=== PATIENT | female | born 1995 | race Caucasian/White ===

== ENCOUNTER → 2019-08-10 13:40 | Outpatient (POV) | payer MEDICAID, SELFPAY | DX: Z00.00 Encounter for general adult medical examination without abnormal findings (principal) ==

== ENCOUNTER → 2019-08-31 13:41 | Outpatient (POV) | payer MEDICAID, SELFPAY | DX: Z00.00 Encounter for general adult medical examination without abnormal findings (principal) ==

== ENCOUNTER → 2021-07-12 14:02 | Outpatient (CLI) | payer MEDICAID, SELFPAY | PROVIDERS: PCP Pediatrics; Visit Provider Nurse Practitioner Family | DX: U07.1 COVID-19 (principal) | CPT/HCPCS: C9803; U0003; U0005 ==

== ENCOUNTER 2022-01-09 11:27 | Emergency (ER) | payer MEDICAID, SELFPAY ==
[2022-01-09 11:50] VITALS: BP 119/72; PULSE 71; RESP 16; TEMP 36.7; O2SAT 98; BMI 19.8
[2022-01-09 11:59] LABS: Strep Scrn Group A (Rapid) Negative (Negative)
--- NOTE | 2022-01-09 12:28 | HMH.EDUTC ---
[facility] [place] Disposition Clinical Impression: Sinusitis Qualifiers: Sinusitis location: unspecified location Chronicity: unspecified Qualified Code(s): J32.9 - Chronic sinusitis, unspecified Disposition: Home, Self-Care Condition on Discharge: Good Instructions: Sinusitis, DI for Sinusitis Additional Instructions: *Monitor Temp, Over the counter Motrin or Tylenol as directed/as needed Tylenol every 4 hours and Motrin every 6 hours (as long as your family doctor has told you that you can take it) for fever or pain. and straight to ER if unable to lower temp less than 101.0 after medication given *Warm salt water gargles may help to soothe the throat *Throat Lozenges *Warm fluids like tea with honey may help to soothe the throat *Sleep elevated *Humidifier/Vaporizer Your throat swab was sent for culture. Those results are typically sent to your primary care. Be sure to follow up in 2-3 days with your family doctor/primary care physician if no improvement so they can review those result and treat if necessary. If you don?t have a primary care doctor, I recommend you get one but in the mean time, you will have to return to a walk in clinic Follow up IMMEDIATELY for new or worsening symptoms or no Noticeable improvement over the next 48-72 hours. 911 for difficulty breathing or swallowing You were tested for today for COVID19 your test result should be back in the next 24-48 hours, you may Check your results on the [facility] My health portal Make sure to take your Vitamins Vit. C Vit D and Zinc if you can take them Prescriptions: methylPREDNISolone [Medrol 4mg tab] 4 mg PO DIRECTED #21 tab Transmission Status: Pending to [facility] # Azithromycin [Z-Talib 250mg Tab] 250 mg PO DIRECTED #6 tab Transmission Status: Pending to [facility] # Referrals: Jaspreet Hernandez JR, MD [Primary Care Provider] - As needed Forms: Work/School Release Medical Decision Making - Jadon Inquiry Pt receiving controlled substance: No Jadon was queried for this patient: No Vital Signs: 01/09/22 11:50 Temperature 98.1 F Temperature Source Oral Pulse Rate [Left Brachial] 71 Respiratory Rate 16 Blood Pressure [Left Arm] 119/72 Blood Pressure Mean [Left Arm] 87 Blood Pressure Source [Left Arm] Automatic Cuff Blood Pressure Position [Left Arm] Sitting 02 Sat by Pulse Oximetry 98 Oxygen Delivery Method Room Air - Lab Data Lab results reviewed: Yes: I reviewed the patient's lab results. Lab Results 01/09/22 11:35: Group A Strep Rapid Negative Orders (Tests/Meds): ORDERS Category Date Time Status Covid-19 Nasal PCR ([facility]) Routine Lab 01/09/22 11:35 Received Strep Screen Confirmation Stat Micro 01/09/22 11:35 Received Medical Decision Narrative: Patient states that she has taken azithromycin and Medrol in the past without complications or reactions [facility] [place] HPI - General Stated complaint: sore throat, weakness, congestion, runny nose, h/a Time Seen by Provider: 01/09/22 12:28 Mode of Arrival: Ambulatory Source of Information: Patient Limitations: No Limitations Description of Symptoms (Recalled from Triage Doc. by RN): PATIENT C/O SINUS PRESSURE, REQUESTING COVID TEST HEENT Symptoms (Recalled from RN notes): Yes Resp Symptoms (Recalled from RN notes): No Skin Symptoms (Recalled from RN notes): No MS Symptoms (Recalled from RN notes): No Functional Status (Recalled from RN notes): WNL - History of Present Illness Provider Complaint: Patient states that she has been having sinus pain and pressure for several days that has continued to get worse States that today her throat is hurting and the pressure behind her eyes States that she was worried she may have strep, sinus infection or COVID - Related Data Home Medications Medication Instructions Recorded Confirmed norgestimate-ethinyl estradiol 1 tab PO DAILY 05/20/18 05/20/18 0.18 mg/0.215mg/0.25mg-35 mcg(28)tablet sertra
[2022-01-09 12:46] VITALS: BP 119/72; PULSE 71; RESP 16; TEMP 36.7; O2SAT 98
== END 2022-01-09 12:47 | disposition home or self-care (01) ==
PROVIDERS: Emergency Provider Nurse Practitioner; PCP Pediatrics
DX: J32.9 Chronic sinusitis, unspecified (principal)
CPT/HCPCS: 87430; 99212; C9803; G0463; U0003; U0005

== ENCOUNTER → 2022-01-16 10:35 | Outpatient (CLI) | payer MEDICAID, SELFPAY ==
[2022-01-16 11:38] LABS: Barbiturates Screen,Urine Negative ng/ml (<200); Benzodiazepines Screen,Urine Negative ng/ml (<200)
[2022-01-16 11:39] LABS: Amphetamine/Metha Screen,Urine Negative ng/ml (<1000); Cocaine Screen,Urine Negative ng/ml (<300)
[2022-01-16 11:40] LABS: Methadone Screen,Urine Negative ng/ml (<300)
[2022-01-16 11:41] LABS: Cannabinoid Screen,Urine Negative ng/ml (<50); Phencyclidine Screen,Urine Negative ng/ml (<25)
[2022-01-16 11:42] LABS: Opiate Screen,Urine Negative ng/ml (<300)
== END ==
PROVIDERS: PCP Pediatrics; Visit Provider Registered Nurse Emergency
DX: F90.9 Attention-deficit hyperactivity disorder, unspecified type (principal)
CPT/HCPCS: 80305

== ENCOUNTER 2022-03-06 10:52 | Emergency (ER) | payer MEDICAID, SELFPAY ==
[2022-03-06 11:40] VITALS: BP 124/68; PULSE 87; RESP 18; TEMP 37; O2SAT 98; BMI 21.4
--- NOTE | 2022-03-06 12:17 | EXP.UTC ---
Discharge Plan Disposition Patient Disposition: Home, Self-Care Condition: Good Prescriptions Prescriptions: New dicyclomine 10 mg capsule 10 mg PO TID PRN (Reason: cramping) Qty: 15 0RF promethazine 25 mg tablet 25 mg PO HS PRN (Reason: nausea and vomiting) Qty: 10 0RF No Action sertraline [Zoloft] 50 mg tablet 50 mg PO DAILY methylphenidate HCl [Concerta] 27 mg tablet extended release 24hr 27 mg PO DAILY Label Comments: TAKE 1 TABLET BY MOUTH EVERY DAY Referrals Referrals: Jaspreet Hernandez JR, MD [Primary Care Provider] - Enter time for follow up Activity Restrictions/Add. Instructions Additional Instructions/Restrictions: Take medications as prescribe Drink extra fluids with and between meals. If you have difficulty drinking, try very small amounts of water or suck on ice chips. ? Avoid fruit juices, as these do not replace minerals and can actually increase diarrhea. ? Children and adults can use sports drinks to replenish electrolytes. Younger children and infants should use products formulated for children, like oral rehydration solutions. ? Eat food in small amounts and let your stomach recover. ? Get lots of rest. You may feel tired or weak. ? No greasy or fried foods for the next 24-48 hours BRAT diet Bananas Rice Apples and [place] ? Make sure to drink plenty of liquids ? Return if needed ? Straight to ER if any life threatening symptoms ? You was given an outpatient order for diarrhea panel, please collect specimen and bring back to outpatient lab then call back to the [facility] or follow up with family doctor for results ? Follow up with family doctor in the next 48-72 hours if no improvement or any worsening of symptoms Clinical Impressions Clinical Impression: Nausea, vomiting and diarrhea Stand Alone Forms Stand Alone Forms: Work/School Release Discharge ED Provider: Christy Cullen [facility] [place] HPI General Stated complaint: vomiting,diarrhea,headache,chills Mode of Arrival: Ambulatory Source of Information: Patient Limitations: No Limitations Time Seen by Provider: 03/06/22 12:10 Description of Symptoms (Recalled from Triage Doc. by RN): PATIENT C/O VOMITING, STOMACH ACHE, WEAKNESS, DIARRHEA, AND FEVER X 4 DAYS HEENT Symptoms (Recalled from RN notes): No Resp Symptoms (Recalled from RN notes): No Skin Symptoms (Recalled from RN notes): No MS Symptoms (Recalled from RN notes): No Functional Status (Recalled from RN notes): WNL History of Present Illness Provider Complaint: Patient states that she thinks she may have a bad stomach bug States that she has been having N/V/D for about 4 days on and off States that she has also had some runny nose and body aches not sure if she may have been around someone with COVID or not States that she took a zofran last night and it caused a bad headache so she doesnt want that if she gets something for nausea Related Data Home Medications Medication Instructions Recorded Confirmed sertraline 50 mg tablet (Zoloft) 50 mg PO DAILY Anxiety 05/20/18 03/06/22 methylphenidate HCl 27 mg 27 mg PO DAILY ADHD 03/06/22 03/06/22 tablet,extended release 24 hr (Concerta) Previous Rx's Medication Instructions Recorded dicyclomine 10 mg capsule 10 mg PO TID PRN cramping #15 caps 03/06/22 promethazine 25 mg tablet 25 mg PO HS PRN nausea and 03/06/22 vomiting #10 tabs Allergies Allergy/AdvReac Type Severity Reaction Status Date / Time No Known Allergies Allergy Verified 05/20/18 14:22 Worker's Comp Is this a Worker's Comp case?: No PFSH PFSH Medical History Anxiety Depression Urinary tract infection Social History Smoking Status: Never smoker alcohol intake: never substance use type: denies use current occupational status: other Travel in the
[2022-03-06 12:55] VITALS: BP 124/68; PULSE 87; RESP 18; TEMP 37; O2SAT 98
== END 2022-03-06 13:00 | disposition home or self-care (01) ==
PROVIDERS: Emergency Provider Nurse Practitioner; PCP Pediatrics
DX: R11.2 Nausea with vomiting, unspecified (principal); R19.7 Diarrhea, unspecified; Z20.822 Contact with and (suspected) exposure to COVID-19
CPT/HCPCS: 99212; C9803; G0463; U0003; U0005

== ENCOUNTER → 2022-03-10 19:43 | Outpatient (CLI) | payer MEDICAID, SELFPAY ==
[2022-03-10 20:21] LABS: Adenovirus F 40/41, stool Not Detected (NotDetected); Astrovirus Not Detected (NotDetected); Campylobacter Not Detected (NotDetected); Clostridium Difficile A/B, PCR Not Detected (NotDetected); Cyclospora Cayetanesis Not Detected (NotDetected); Entamoeba histolytica Not Detected (NotDetected); Enteroaggregative E coli Not Detected (NotDetected); Enteropathogenic E coli Not Detected (NotDetected); Enterotoxigenic E coli Not Detected (NotDetected); Giardia lamblia Not Detected (NotDetected); Norovirus Not Detected (NotDetected); Plesimonas Shigalloides, PCR Not Detected (NotDetected); Rotavirus A Not Detected (NotDetected); Salmonella, PCR Not Detected (NotDetected); Sapovirus Not Detected (NotDetected); Shiga-like toxin E coli Not Detected (NotDetected); Shigella Enterovasive E coli Not Detected (NotDetected); Vibrio Cholerae Not Detected (NotDetected); Vibrio, PCR Not Detected (NotDetected); Yersinia Entercolitica, PCR Not Detected (NotDetected)
[2022-03-11 09:22] LABS: Cryptosporidium Detected (NotDetected)
== END ==
PROVIDERS: Visit Provider Nurse Practitioner
DX: R19.7 Diarrhea, unspecified (principal); A07.2 Cryptosporidiosis
CPT/HCPCS: 87507

== ENCOUNTER 2022-07-14 11:04 | Emergency (ER) | payer MEDICAID, SELFPAY ==
[2022-07-14 12:25] VITALS: BP 116/72; PULSE 103; RESP 20; TEMP 37.1; O2SAT 97; BMI 21.3
--- NOTE | 2022-07-14 13:04 | EXP.UTC ---
Discharge Plan Disposition Patient Disposition: Home, Self-Care Condition: Good Prescriptions Prescriptions: New guaifenesin [Mucinex] 600 mg tablet extended release 12hr 600 mg PO BID PRN (Reason: cough) Qty: 20 0RF No Action sertraline [Zoloft] 50 mg tablet 50 mg PO DAILY methylphenidate HCl [Concerta] 27 mg tablet extended release 24hr 27 mg PO DAILY Label Comments: TAKE 1 TABLET BY MOUTH EVERY DAY dicyclomine 10 mg capsule 10 mg PO TID PRN (Reason: cramping) Qty: 15 0RF promethazine 25 mg tablet 25 mg PO HS PRN (Reason: nausea and vomiting) Qty: 10 0RF Referrals Follow up/Referrals: Jaspreet Hernandez JR, MD [Primary Care Provider] - See instructions Activity Restrictions/Add. 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 and start the Cefdinir and the Medrol tomorrow Return if needed Straight to ER if any life threatening symptoms Follow up with your Family Doctor if no improvement or any worsenign of symptoms Over the counter Ibuprofen/Motrin as directed on package if you can take it for fever and pain Clinical Impressions Clinical Impression: Bronchitis Instructions Patient Instructions: DI for Pleurisy, Methylprednisolone, Cefdinir Discharge ED Provider: Christy Cullen [facility] [place] HPI General Stated complaint: SOA, Congestion, drainage Mode of Arrival: Ambulatory Source of Information: Patient Limitations: No Limitations Time Seen by Provider: 07/14/22 13:04 Description of Symptoms (Recalled from Triage Doc. by RN): PATIENT C/O PRODUCTIVE COUGH, SOA, AND BACK/SHOULDER PAIN SINCE 07/04/22 HEENT Symptoms (Recalled from RN notes): No Resp Symptoms (Recalled from RN notes): Yes Skin Symptoms (Recalled from RN notes): No MS Symptoms (Recalled from RN notes): Yes Functional Status (Recalled from RN notes): WNL History of Present Illness Provider Complaint: Patient states that she got sick right around [place] and thought she just had a virus States that she has continued to get worse States that she is coughing up some mucous at times and thinks she may have pleurisy again States that she has pain at times in her left shoulder blade area with cough or deep breath Related Data Home Medications Medication Instructions Recorded Confirmed sertraline 50 mg tablet (Zoloft) 50 mg PO DAILY Anxiety 05/20/18 03/06/22 methylphenidate HCl 27 mg 27 mg PO DAILY ADHD 03/06/22 03/06/22 tablet,extended release 24 hr (Concerta) Previous Rx's Medication Instructions Recorded dicyclomine 10 mg capsule 10 mg PO TID PRN cramping #15 caps 03/06/22 promethazine 25 mg tablet 25 mg PO HS PRN nausea and 03/06/22 vomiting #10 tabs guaifenesin 600 mg tablet, 600 mg PO BID PRN cough #20 tabs 07/14/22 extended release 12 hr (Mucinex) Allergies Allergy/AdvReac Type Severity Reaction Status Date / Time No Known Allergies Allergy Verified 05/20/18 14:22 Worker's Comp Is this a Worker's Comp case?: No [facility] Disclaimer: The information contained in this section may have been updated after the patient was seen, as this information can be updated by other users. Medical History Anxiety Depression Urinary tract infection Social History (Updated 07/14/22 @ 12:43 by Katharine Scanlon RN) Smoking Status: Never smoker alcohol intake: never substance use type: denies use current occupational status: other Travel in the last 8 weeks: None ROS Obtained: Yes All systems reviewed & no additional complaints except as documented and Yes Systems reviewed as appropriate & no additional complaints except as documented Constitutional Constitutional: Reports system reviewed and no additional complaints, except as documented and Reports as per HPI ENT Ears, Nose, Mouth, and Throat: Reports system reviewed and no additional complaints, except as documented, Reports as per
[2022-07-14 13:29] VITALS: BP 116/72; PULSE 103; RESP 20; TEMP 37.1; O2SAT 97
== END 2022-07-14 13:37 | disposition home or self-care (01) ==
PROVIDERS: Emergency Provider Nurse Practitioner; PCP Pediatrics
DX: J40 Bronchitis, not specified as acute or chronic (principal)
CPT/HCPCS: 96372; 99212; G0463; J0696

== ENCOUNTER 2024-04-06 15:48 | Outpatient (CLI) | payer MEDICAID, SELFPAY ==
[2024-04-06 16:56] LABS: Amphetamine/Metha Screen,Urine Negative ng/ml (<1000); Barbiturates Screen,Urine Negative ng/ml (<200)
[2024-04-06 16:57] LABS: Benzodiazepines Screen,Urine Negative ng/ml (<200)
[2024-04-06 16:58] LABS: Cannabinoid Screen,Urine Negative ng/ml (<50); Cocaine Screen,Urine Negative ng/ml (<300)
[2024-04-06 16:59] LABS: Methadone Screen,Urine Negative ng/ml (<300)
[2024-04-06 17:02] LABS: Opiate Screen,Urine Negative ng/ml (<300)
[2024-04-06 17:03] LABS: Phencyclidine Screen,Urine Negative ng/ml (<25)
== END 2024-04-06 23:59 | disposition home or self-care (01) ==
LOC: LAB 15:49
PROVIDERS: Visit Provider Registered Nurse Emergency
DX: F90.9 Attention-deficit hyperactivity disorder, unspecified type (principal)
CPT/HCPCS: 80307